=== PATIENT | female | born 1990 | race Caucasian/White ===

== ENCOUNTER 2019-07-13 07:05 | Emergency (ER) | payer OTHER ==
[~2019-07-13] VITALS: Ht 160 cm; Wt 60.3 kg
[~2019-07-13 07:05] MED LIST: AZIT250T PO
[2019-07-13 08:18] VITALS: BP 106/72
--- NOTE | 2019-07-13 08:43 | ED.ADGEN ---
Past History Past Medical History: No Pertinent History Past Surgical History: No Surgical History Alcohol Use: Rarely Drug Use: None Adult General Chief Complaint Chief Complaint Back pain HPI HPI Patient is a 20-year-old female presents with mid lower and upper left-sided back pain starting 2 days ago. Pain is rated moderate to severe and is nonradiating. Patient denies trauma or sprain pattern injury. States she has history of recurrent rib/back pain. Patient took ibuprofen without relief. Pain is described sharp worse with palpation movement and arm use. Denies abdominal pain. No nausea vomiting no urinary frequency urgency or burning. No other acute symptoms or complaints..[] Review of Systems Review of Systems Review symptoms as per history of present illness. All other review symptoms are negative. All other systems were reviewed and found to be within normal limits, except as documented in this note. Allergies Allergies Allergies Coded Allergies Type Severity Reaction Last Updated Verified No Known Drug Allergies 06/28/16 No Physical Exam Physical Exam Constitutional: Well developed, well nourished, no acute distress, non-toxic appearance. [] HENT: Normocephalic, atraumatic, bilateral external ears normal, nose normal. [] Eyes: PERRLA, EOMI, conjunctiva normal, no discharge. [] Neck: Normal range of motion, no tenderness. [] Cardiovascular:Heart rate regular rhythm, no murmur [] Lungs & Thorax: Bilateral breath sounds clear to auscultation [] Abdomen: Bowel sounds normal, soft, no tenderness. [] Skin: Warm, dry, no erythema. [] Back: No CVA tenderness, left paravertebral pain/tenderness to palpation. [] Extremities: No tenderness, no edema. [] Neurologic: Alert and oriented X 3, normal motor function, normal sensory function, no focal deficits noted. [] Psychologic: Affect normal, judgement normal, mood normal. [] Current Patient Data Vital Signs Vital Signs Date Time Temp Pulse Resp B/P (MAP) Pulse Ox O2 Delivery O2 Flow Rate FiO2 07/13/19 08:18 98.2 75 16 100 Room Air EKG EKG [] Radiology/Procedures Radiology/Procedures [] Course & Med Decision Making Course & Med Decision Making Pertinent Labs and Imaging studies reviewed. (See chart for details) [] Final Impression Final Impression [] Dragon Disclaimer Dragon Disclaimer This electronic medical record was generated, in whole or in part, using a voice recognition dictation system. KODY MCKENZIE DO Jul 13, 2019 08:43
[2019-07-13] MEDS ORDERED: TRAM50TA PO (08:45)
[2019-07-13] MEDS ORDERED: CYCL-331 PO (08:45)
== END 2019-07-13 09:19 | disposition home or self-care (01) ==
LOC: ER 07:05
DX: M54.5 Low back pain (principal); M54.6 Pain in thoracic spine
CPT/HCPCS: 99283

== ENCOUNTER 2020-08-08 06:50 | Emergency (ER) | payer OTHER ==
[~2020-08-08] VITALS: Ht 160 cm; Wt 61.3 kg
[~2020-08-08 06:50] MED LIST changes: +CYCL-331 PO; +TRAM50TA PO
[2020-08-08 07:13] VITALS: BP 121/84
[2020-08-08] MEDS ORDERED: CEPH-264 PO (07:35)
--- NOTE | 2020-08-08 07:36 | PHYS DOC ---
Past History Past Medical History: No Pertinent History, Other Additional Past Medical Histor: chronic pain Past Surgical History: Hysterectomy, Other Additional Past Surgical Histo: ear surgery Alcohol Use: Occasionally Drug Use: None General Adult EDM: Chief Complaint: LACERATION/AVULSION HPI: HPI: Patient is a 29-year-old female who presents with complaint of right third digit injury. She states 30 minutes prior to arrival she was cranking a crossbow. She states that the crank slipped and struck the dorsal aspect of her distal right long finger. She did note a small cut and immediate bleeding. She does note pain over the area. Denies swelling. Denies hand pain. Denies wrist pain. States she is right-handed. Applied direct pressure and reported to the emergency department. Review of Systems: Review of Systems: Constitutional: Denies fever or chills Eyes: Denies change in visual acuity HENT: Denies nasal congestion or sore throat Respiratory: Denies cough or shortness of breath Cardiovascular: Denies chest pain or edema GI: Denies abdominal pain, nausea, vomiting, bloody stools or diarrhea : Denies dysuria Musculoskeletal: Denies back pain or joint pain Integument: Positive for laceration Neurologic: Denies headache, focal weakness or sensory changes Endocrine: Denies polyuria or polydipsia Lymphatic: Denies swollen glands Psychiatric: Denies depression or anxiety Allergies: Allergies: Allergies Coded Allergies Type Severity Reaction Last Updated Verified No Known Drug Allergies 06/28/16 No Physical Exam: PE: Constitutional: Well developed, well nourished, no acute distress, non-toxic appearance. [] HENT: Normocephalic, atraumatic, bilateral external ears normal, oropharynx moist, no oral exudates, nose normal. [] Eyes: PERRLA, EOMI, conjunctiva normal, no discharge. [] Neck: Normal range of motion, no tenderness, supple, no stridor. [] Cardiovascular:Heart rate regular rhythm, no murmur [] Lungs & Thorax: Bilateral breath sounds clear to auscultation [] Abdomen: soft, no tenderness, no masses, no pulsatile masses. [] Skin: Warm, dry, no erythema, no rash. [] Back: No tenderness, no CVA tenderness. [] Extremities: 1 cm laceration over the distal aspect of the dorsal third long finger. Linear. Mild bloody oozing. Slightly gaping. No nailbed involvement. No bone visualized. Flexion and extensor mechanisms intact. +2-4 radial pulse on the right. Capillary refill brisk. Cardinal hand movements intact. Sensation intact throughout. Neurologic: Alert and oriented X 3, normal motor function, normal sensory function, no focal deficits noted. [] Psychologic: Affect normal, judgement normal, mood normal. [] Current Patient Data: Vital Signs: Vital Signs Date Time Temp Pulse Resp B/P (MAP) Pulse Ox O2 Delivery O2 Flow Rate FiO2 08/08/20 07:13 97.3 85 16 121/84 (96 97 Room Air EKG: EKG: [] Radiology/Procedures: Radiology/Procedures: [place] [address] IMAGING REPORT Signed PATIENT: JANET GAMING ACCOUNT: [id number] : 1990 LOCATION: ER AGE: 29 SEX: F EXAM STATUS: REG ER ORD. PHYSICIAN: FATMATA UGALDE DO REASON: pain to long finger s/p injuryb PROCEDURE: HAND RIGHT 3V HAND RIGHT 3V DATE: 08/08/2020 7:15 AM INDICATION: Reason: pain to long finger s/p injuryb / Spl. Instructions: / History: COMPARISON: None. FINDINGS: Bones: There is no evidence of acute fracture or dislocation. Joints: The joint spaces are normal. Miscellaneous: None. IMPRESSION: No evidence of acute fracture. Electronically signed by: Delisa Perez MD (08/08/2020 7:44 AM) [id number] DICTATED AND SIGNED BY: DELISA PEREZ MD DATE: 08/08/20 0744 CC: PCP,UNKNOWN; FATMATA UGALDE DO ~MTH0 0 [] Laceration Repair: Obtained verbal consent from patient. Time out done prior to procedure. No sedation was required. 1 Laceration(s) to distal right third digit dorsal aspect. Sterile drape fashioned, following sterile procedure. Procedure: Laceration Repair Length: 1 cm Description: Clean Mechanism: Blunt object Shape: Linear Complex: n/a The wound area was prepped and draped in a sterile fashion. The wound area was anesthetized with 1% lidocaine without epinephrine The wound was explored with the following results no nailbed involvement. No bone visualized. No tendon involvement. The wound was repaired with 2, 5-0; 9 sutures were used. The wound was dressed cleanly. The patient tolerated the procedure well. Heart Score: Risk Factors: Risk Factors: DM, Current or recent (<one month) smoker, HTN, HLP, family history of CAD, obesity. Risk Scores: Score 0 - 3: 2.5% MACE over next 6 weeks - Discharge Home Score 4 - 6: 20.3% MACE over next 6 weeks - Admit for Clinical Observation Score 7 - 10: 72.7% MACE over next 6 weeks - Early Invasive Strategies Course & Med Decision Making: Course & Med Decision Making Pertinent Labs and Imaging studies reviewed. (See chart for details) [] Patient is a well-appearing 29-year-old female presents with complaint of l aceration injury to the dorsal aspect of the right third digit. X-rays obtained show no signs of obvious fracture. Wound was irrigated copiously with tap water. Repaired with 2, 5-0 nylon sutures. Given the crossbow was used for outdoor recreation I do feel there is possibility for infection risk. She will be given a short course of Keflex. She was instructed if sutures removed in 7 days. Return precautions were discussed and understood. Stable for discharge home. Abisai Disclaimer: Abisai Disclaimer: This electronic medical record was generated, in whole or in part, using a voice recognition dictation system. Departure Departure: Impression: Primary Impression: Finger laceration Qualified Codes: S61.212A - Laceration without foreign body of right middle finger without damage to nail, initial encounter Disposition: 01 DC HOME SELF CARE/HOMELESS Condition: STABLE Referrals: PCP,UNKNOWN (PCP) CHARLINE GUERIN MD Patient Instructions: Fingertip Laceration, Laceration Care, Adult Additional Instructions: Please have sutures removed in 7 days. Scripts Cephalexin (KEFLEX) 500 Mg Capsule 500 MG PO QID for infection for 7 Days, #28 TAB Prov: FATMATA UGALDE DO 08/08/20 FATMATA UGALDE DO Aug 08, 2020 07:36
--- NOTE | 2020-08-08 07:47 | RAD ---
HAND RIGHT 3V DATE: 08/08/2020 7:15 AM INDICATION: Reason: pain to long finger s/p injuryb / Spl. Instructions: / History: COMPARISON: None. FINDINGS: Bones: There is no evidence of acute fracture or dislocation. Joints: The joint spaces are normal. Miscellaneous: None. IMPRESSION: No evidence of acute fracture. Electronically signed by: Zelalem Perez MD (08/08/2020 7:44 AM) [id number]
[2020-08-08] MEDS ORDERED: NEOMY/BACITR/POLYMYXIN OINT PACKET. TP ONE (07:55)
== END 2020-08-08 08:05 | disposition home or self-care (01) ==
LOC: ER 06:50
DX: S61.212A Laceration without foreign body of right middle finger without damage to nail, initial encounter (principal); G89.29 Other chronic pain; W26.8XXA Contact with other sharp object(s), not elsewhere classified, initial encounter; Y93.89 Activity, other specified; Y92.89 Other specified places as the place of occurrence of the external cause; Y99.8 Other external cause status
CPT/HCPCS: 12001; 73130; 99283

== ENCOUNTER → 2021-05-07 | Outpatient (CLI) | payer OTHER ==
[~2021-05-07] MED LIST changes: +CEPH-264 PO
--- NOTE | 2021-05-07 10:51 | RAD ---
EXAM: Left wrist, 3 views; left hand, 3 views. HISTORY: Pain. Trauma. COMPARISON: None. FINDINGS: 3 views of the left hand and wrist are obtained. There is no fracture, dislocation or sublu xation. There is no radiodense foreign body. There is no suspicious lytic or sclerotic osseous lesion . IMPRESSION: No acute osseous finding. Electronically signed by: Jessica Vidal MD (05/07/2021 10:48 AM) [id number]
== END ==
LOC: RAD 10:28
PROVIDERS: ATTEND Physician Assistant
DX: S69.92XA Unspecified injury of left wrist, hand and finger(s), initial encounter (principal); M25.532 Pain in left wrist; X58.XXXA Exposure to other specified factors, initial encounter; Y93.89 Activity, other specified; Y92.89 Other specified places as the place of occurrence of the external cause; Y99.8 Other external cause status
CPT/HCPCS: 73110; 73130